=== PATIENT | female | born 1995 | race Caucasian/White ===

== ENCOUNTER 2017-09-13 20:59 | Emergency (ER) | payer BC ==
[~2017-09-13] VITALS: Ht 157.4 cm; Wt 100.7 kg
[2017-09-13] MEDS ORDERED: Motrin,Rufen800 MG PO (22:32)
== END 2017-09-13 23:43 | disposition home or self-care (01) ==
LOC: ED 20:59
DX: S63.502A Unspecified sprain of left wrist, initial encounter (principal); W01.198A Fall on same level from slipping, tripping and stumbling with subsequent striking against other object, initial encounter; Y93.01 Activity, walking, marching and hiking; Y92.89 Other specified places as the place of occurrence of the external cause; Y99.8 Other external cause status

== ENCOUNTER 2019-07-16 20:49 | Emergency (ER) | payer SELFPAY ==
[~2019-07-16] VITALS: Ht 157.4 cm; Wt 87.1 kg
--- NOTE | ~2019-07-16 | EKG ---
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
[~2019-07-16 20:49] MED LIST: Motrin,Rufen800 MG PO
[2019-07-16] MEDS ORDERED: PEPCID20 MG PO (23:48)
[2019-07-16] MEDS ORDERED: ZYRTEC10 MG PO (23:48)
== END 2019-07-16 23:59 | disposition home or self-care (01) ==
LOC: ED 20:49
DX: R07.89 Other chest pain (principal)

== ENCOUNTER 2021-08-31 12:01 | Emergency (ER) | payer BC ==
[~2021-08-31 12:01] MED LIST changes: +PEPCID20 MG PO; +ZYRTEC10 MG PO
[2021-08-31] MEDS ORDERED: IBUPROFEN600 MG PO (14:27)
== END 2021-08-31 14:58 | disposition home or self-care (01) ==
LOC: ED 12:01
DX: S83.92XA Sprain of unspecified site of left knee, initial encounter (principal); X50.1XXA Overexertion from prolonged static or awkward postures, initial encounter; Y93.89 Activity, other specified; Y92.89 Other specified places as the place of occurrence of the external cause; Y99.8 Other external cause status

== ENCOUNTER → 2023-07-14 | Outpatient (CLI) | payer OTHER ==
[~2023-07-14] MED LIST changes: +IBUPROFEN600 MG PO
[2023-07-14 17:49] LABS: BASO % 0.3 % (0.0-1.0); EOS # 0.1 10*3/uL (0.0-0.4); EOS % 0.8 % (1.0-4.0); HEMATOCRIT 38.7 % (37.0-47.0); LYMPH # 1.7 10*3/uL (1.3-4.4); LYMPH % 25.5 % (27.0-41.0); MEAN CELL VOLUME 81.5 fl (81.0-99.0); MEAN CORPUSCULAR HGB CONC 34.4 g/dl (33.0-37.0); MEAN PLATELET VOLUME 10.5 fl (9.6-12.3); MONO # 0.6 10*3/uL (0.1-1.0); MONO % 9.4 % (3.0-9.0); NEUT # 4.2 10*3/uL (2.3-7.9); NEUT % 63.7 % (47.0-73.0); PLATELET COUNT AUTOMATED 268 10*3/uL (130-400); RED BLOOD COUNT 4.75 10*6/uL (4.10-5.10); RED CELL DISTRI WIDTH 12.6 % (0-14.5); WHITE BLOOD COUNT 6.6 10*3/uL (4.8-10.8)
[2023-07-14 18:24] LABS: ALKALINE PHOSPHATASE 71 U/L (46-116); BUN 8 mg/dl (9-23); CHLORIDE 106 mmol/L (98-107); POTASSIUM 3.9 mmol/L (3.4-5.1); SGPT/ALT 21 U/L (5-49); TOTAL PROTEIN 7.7 gm/dL (6.0-8.0)
[2023-07-16 14:06] LABS: ZINC, PLASMA 84 ug/dL (44-115)
== END | disposition home or self-care (01) ==
LOC: LAB 17:12
DX: E21.3 Hyperparathyroidism, unspecified (principal); E03.9 Hypothyroidism, unspecified; K90.9 Intestinal malabsorption, unspecified

== ENCOUNTER 2023-09-26 11:30 | Emergency (ER) | payer OTHER ==
[~2023-09-26] VITALS: Ht 157.4 cm; Wt 102.1 kg
[2023-09-26] MEDS ORDERED: OMEPRAZOLE40 MG PO (11:39)
== END 2023-09-26 13:22 | disposition home or self-care (01) ==
LOC: ED 11:30
DX: S63.91XA Sprain of unspecified part of right wrist and hand, initial encounter (principal); K21.9 Gastro-esophageal reflux disease without esophagitis; Z90.89 Acquired absence of other organs; W22.8XXA Striking against or struck by other objects, initial encounter; Y93.K9 Activity, other involving animal care; Y92.89 Other specified places as the place of occurrence of the external cause; Y99.8 Other external cause status

== ENCOUNTER 2025-06-28 23:51 | Emergency (ER) | payer OTHER ==
[~2025-06-28] VITALS: Ht 154.9 cm; Wt 85.7 kg
[~2025-06-28 23:51] MED LIST changes: +OMEPRAZOLE40 MG PO
[2025-06-29] MEDS ORDERED: NAPROSYN500 MG PO (01:30)
[2025-06-29] MEDS ORDERED: NAPROXEN 250 MG TAB PO ONE (01:35)
== END 2025-06-29 01:40 | disposition home or self-care (01) ==
LOC: ED 23:51
DX: S60.221A Contusion of right hand, initial encounter (principal); S60.031A Contusion of right middle finger without damage to nail, initial encounter; S60.021A Contusion of right index finger without damage to nail, initial encounter; S60.041A Contusion of right ring finger without damage to nail, initial encounter; W22.8XXA Striking against or struck by other objects, initial encounter; Y93.89 Activity, other specified; Y92.89 Other specified places as the place of occurrence of the external cause; Y99.8 Other external cause status